=== PATIENT | female | born 1940 | race African-American/Black ===

== ENCOUNTER → 2019-08-23 | Day surgery (SDC) | payer MEDICARE ==
[2019-08-21 16:01] LABS: BASOPHILS % 0.4 % (0.0-1.0); EOSINOPHILS # (AUTO) 0.1 (0.0-0.4); EOSINOPHILS % 1.9 % (0.0-6.0); HEMATOCRIT 38.1 % (34.2-44.1); HEMOGLOBIN 12.5 g/dL (12.0-16.0); LYMPHOCYTES % 40.7 % (18.0-39.1); MEAN CORPUSCULAR HEMOGLOBIN 30.3 pg (28-32); MEAN CORPUSCULAR HGB CONC 32.8 g/dL (31-35); MEAN CORPUSCULAR VOLUME 92.5 fL (81-99); MONOCYTES # (AUTO) 0.5 (0.2-0.8); MONOCYTES % 10.2 % (4.4-11.3); NEUTROPHILS # (AUTO) 2.2 (2.1-6.9); NEUTROPHILS % 46.6 % (38.7-80.0); PLATELET COUNT 191 x10e3/uL (140-360); RED BLOOD COUNT 4.12 x10e6/uL (3.6-5.1); RED CELL DISTRIBUTION WIDTH 14.5 % (11.7-14.4)
--- NOTE | 2019-08-21 16:03 | Diagnostic Imaging Report ---
Chest, PA and lateral. History: Preoperative evaluation for shoulder surgery. Comparison: None available. Discussion: The cardiomediastinal silhouette and pulmonary vasculature are within normal limits. The lungs are clear without evidence of consolidation or effusion. A small hiatal hernia is present. There are no acute osseous abnormalities. IMPRESSION: No radiographic evidence of acute cardiopulmonary abnormality. Signed by: Ja Chacko MD on 08/21/2019 4:01 PM
[2019-08-21 16:09] LABS: CALCIUM 9.6 mg/dL (8.4-10.2); CREATININE, SERUM 1.12 mg/dL (0.57-1.11)
[~2019-08-23] MED LIST: ABILIFY5 MG PO; ACETAMINOPHEN 1000 MG/100 ML IV ONE; ATORVASTATIN CA20 MG PO; CEFAZOLIN SOD 1 GM/NS 50ML 100 ML IV ONE; DEXAMETHASONE SOD PHOS INJ 4 MG/ML VIAL ONE; EPINEPHRINE 1 MG/ML 30ML VIAL ONE; FENTANYL CITRATE/PF 100MCG/2 ML INJ ONE; FUROSEMIDE40 MG PO; GLIPIZIDE ER5 MG PO; GLYCOPYRROLATE INJ 0.2 MG/ML VIAL ONE; HEPARIN SOD/SOD CHLORIDE 1,000 ML ONE; LIDOCAINE 2% /EPINEPHRINE 20 ML SDV INJ ONE; LIDOCAINE HCL 2% LOCAL INJ 5 ML SDV VIAL INJ ONE; MEPERIDINE HCL INJ 25 MG/ML VIAL ONE; METOPROLOL SUCC25 MG PO; MIDAZOLAM HCL 2 MG/2 ML VIAL ONE; NAMENDA10 MG PO; NEOSTIGMINE 1 MG/ML 10ML VIAL ONE; NIFEDIPINE ER30 M1 PO; ONDANSETRON HCL INJ 2MG/ML 2ML 2 MG/ML VIAL ONE; PAROXETINE HCL20 MG PO; PHENYLEPHRINE HCL 1% 10 MG/ML VIAL ONE; PROPOFOL IV EMULSION 10 MG/ML 20 ML VIAL ONE; ROCURONIUM BROMIDE 10 MG/ML 5ML VIAL ONE; ROPIVACAINE 0.5% 5 MG/ML 30 ML SDV ONE; SEVOFLURANE INHAL SOLN 250 ML PEN BTL ONE
--- OUTSIDE RECORDS SUMMARY | 2019-08-23 07:59 | XMS REPORT ---
Author Author [facility] Organization [facility] Address Unknown Phone Unavailable Care Team Providers Care Director Of Quality Control Name Role Phone YOAV AQUINO Unavailable Unavailable Payers Payer Name Policy Type Policy Number Effective Date Expiration Date Problems This patient has no known problems. Allergies, Adverse Reactions, Alerts Allergy Name Allergy Type Status Severity Reaction(s) Onset Date Inactive Date Treating Clinician Comments No Known Contrast Allergies DA Active U 2007-07-13 00:00:00 No Known Drug Allergies DA Active U 2007-07-13 00:00:00 No Known Food Allergies DA Active U 2007-07-13 00:00:00 No Known Other Allergies DA Active U 2007-07-13 00:00:00 Medications This patient has no known medications. Results Test Description Test Time Test Comments Text Results Atomic Results Result Comments CHEST 2 VIEWS 2019-08-21 16:00:[address] [address] Patient Name: MARTY STREETER MR #: [id number] : 1940 Age/Sex: 79/F Req #: [id number] Adm Physician: Ordered by: YOAV AQUINO MD Report #: [id number] Location: OR Room/Bed: Procedure: [id number] DX/CHEST 2 VIEWS Exam Date: 08/21/19 Exam Time: 1550 REPORT STATUS: Signed Chest, PA and lateral. History: Preoperative evaluation for shoulder surgery. Comparison: None available. Discussion: The cardiomediastinal silhouette and pulmonary vasculature are within normal limits. The lungs are clear without evidence of consolidation or effusion. A small hiatal hernia is present. There are no acute osseous abnormalities. IMPRESSION: No radiographic evidence of acute cardiopulmonary abnormality. Signed by: Ja Hobson MD on 08/21/2019 4:01 PM Dictated By: JA HOBSON MD 1601 Transcribed By: MOSES on 08/21/19 1601 COPY TO: YOAV AQUINO MD
[2019-08-23 14:05] VITALS: BP 154/79
--- NOTE | 2019-08-24 23:50 | Operative Report ---
DATE OF PROCEDURE: 08/23/2019 SURGEON: Zechariah English MD PREOPERATIVE DIAGNOSES: 1. Left shoulder rotator cuff tear. 2. Left shoulder acromioclavicular joint arthritis. POSTOPERATIVE DIAGNOSES: 1. Chronic large left rotator cuff tear. 2. Left shoulder synovitis. 3. Left shoulder adhesions. 4. Left shoulder acromioclavicular joint arthritis. OPERATIONS AND PROCEDURES PERFORMED: 1. Left shoulder examination under anesthesia. 2. Left shoulder arthroscopy. 3. Left shoulder manipulation under anesthesia. 4. Left shoulder debridement of synovitis. 5. Left shoulder arthroscopic takedown of adhesions. 6. Left shoulder arthroscopic rotator cuff reconstruction. 7. Left shoulder arthroscopic subacromial decompression and acromioplasty. 8. Left shoulder arthroscopic distal clavicle resection. GORE MAKER: KAYLAH Das ANESTHESIA: General endotracheal intubation anesthesia. IV FLUIDS: Per anesthesia record. BRIEF DESCRIPTION OF THE PATIENT'S OPERATIVE PROCEDURE: Ms. Reyes was taken to the operating room and placed in supine position on the operating table. Following induction of general anesthesia as well as endotracheal intubation, the patient's left upper extremity was examined under anesthesia. She was found to have a normal-appearing shoulder. There were no surgical scars about the shoulder. Passive range of motion of shoulder demonstrated stiffness at the end range of motion. The arm was gently manipulated under anesthesia and adhesions were felt to give away during the manipulation. The patient's shoulder and upper extremity were then prepped, draped in standard surgical fashion. Standard posterior, lateral, and anterior portals were created without difficulty. The scope was placed within the shoulder joint atraumatically. Examination of the glenohumeral articulation demonstrated diffuse synovitis. There was no significant evidence of chondromalacia of the glenoid or humeral head surfaces. There were no loose bodies in the shoulder joint. The biceps tendon was found to be ruptured and not contained within the shoulder. There was a large full-thickness rotator cuff tear. The shaver was placed in the shoulder joint and the synovitis was debrided. The rotator cuff injury was also debrided at this time. The insertion site was debrided to a bleeding bony bed. The shoulder was inflated with sterile normal saline. The scope was transferred to the subacromial space and a lateral portal was created from an outside-in technique. Significant bursal inflammation was encountered. A bursectomy was performed. There was a significantly downward sloping acromion, both laterally and anteriorly. The rotator cuff tear was again identified and the shaver was used to further debride the insertion site. A single triple-loaded suture anchor was inserted into the greater tuberosity and the suture arms from that anchor were then woven through the rotator cuff tissue, advancing the rotator cuff into its normal insertion site. The tissue was then advanced into its insertion site and tied firmly. This resulted in complete reapproximation of the rotator cuff injury. There were multiple adhesions within the subacromial space and these were also taken down using a shaver. An aggressive acromioplasty was performed at this time. The coracoacromial ligament was also resected. Attention was then turned to the acromioclavicular joint. The AC joint was isolated and the anterior portal was transferred into the subacromial space. The shaver was then transferred to the anterior portal and a 1 cm section of the distal clavicle was resected. This was then confirmed by transferring the scope to the anterior portal. The shoulder was inflated with sterile normal saline. All portal sites were closed and sterile dressings were applied. The patient was provided a shoulder immobilizer, awakened, and taken to postanesthesia care in stable condition. Milagro Harvey acted as process assistant for this case and was necessary for the prepping and draping the patient as well as the position of the arm and the passage of suture that allowed this case to be successful. MD SUE Grimaldo/SIMRAN /[id number]
== END | disposition home or self-care (01) ==
LOC: OR 07:57
PROVIDERS: ATTEND Specialist
DX: S46.092A Other injury of muscle(s) and tendon(s) of the rotator cuff of left shoulder, initial encounter (principal); M19.012 Primary osteoarthritis, left shoulder; E11.9 Type 2 diabetes mellitus without complications; I10 Essential (primary) hypertension; G47.33 Obstructive sleep apnea (adult) (pediatric); E78.00 Pure hypercholesterolemia, unspecified; Z01.810 Encounter for preprocedural cardiovascular examination; Z01.812 Encounter for preprocedural laboratory examination; Z01.811 Encounter for preprocedural respiratory examination; M65.812 Other synovitis and tenosynovitis, left shoulder; Z79.84 Long term (current) use of oral hypoglycemic drugs
CPT/HCPCS: 29824; 29826; 29827; 36415 ×2; 71046; 80048; 82948; 85025; 93005; C1713; J0131; J0690; J1100; J2001 ×2; J2175; J2250; J2370; J2405; J2704; J2710; J2795; J3010